=== PATIENT | male | born 1930 | race Caucasian/White ===

== ENCOUNTER → 2016-06-15 13:31 | Outpatient (CLI) | payer MEDICARE, OTHER ==
[2015-08-08 23:35] VITALS: BMI 33.2
[~2016-06-15 13:31] MED LIST: ADVIL PM CAPLET1 TAB PO; ASCORBIC ACID500 MG PO; BAYER CHEWABLE81 MG PO; CALCIUM 600+D T1 TA1 PO; CO Q-10200 MG PO; FISH OIL 1,2001 CA1 PO; FOLIC ACID1 MG PO; IBUPROFEN600 MG PO; NIASPAN1000 MG PO; NORVASC10 MG PO; OSTEO BI-FLEX1 EAC1 PO; PLAVIX75 MG PO; PRAVACHOL40 MG PO; SAW PALMETTO450 MG PO; VITAMIN B COMPL1 TAB PO; VITAMIN E400 UNI2 PO
== END | disposition home or self-care (01) ==
LOC: D.US 06-14 14:30
DX: I65.23 Occlusion and stenosis of bilateral carotid arteries (principal)

== ENCOUNTER 2016-09-29 09:23 | Outpatient (CLI) | payer MEDICARE, OTHER ==
[~2016-09-29] VITALS: Ht 180.3 cm; Wt 100.9 kg
[2016-09-29] MEDS ORDERED: PREDNISONE20 MG PO (09:59)
[2016-09-29 10:03] VITALS: BP 153/78; Ht 180.3 cm; Wt 100.9 kg
[2016-09-29 10:21] LABS: BASOPHILS 0 % (0-2); EOSINOPHILS 0 % (0-7); HEMATOCRIT 47.2 % (42.0-54.0); HEMOGLOBIN 16.1 g/dL (13.5-17.5); IMMATURE GRANULOCYTES 0.1 % (0-5); LYMPHOCYTES 8.2 % (15-50); MCH 31.7 pg (26.0-34.0); MCHC 34.1 g/dL (31.0-37.0); MCV 92.9 fL (80.0-100.0); MEAN PLATELET VOLUME 9.6 fL (7.4-10.4); MONOCYTES 1.5 % (2-11); NEUTROPHILS 90.2 % (40-80); PLATELET COUNT 188 10x3/uL (130-400); RBC 5.08 10x6/uL (4.20-6.10); RDW 13.5 % (11.5-14.5); WBC 8.1 10x3/uL (4.8-10.8)
[2016-09-29 10:37] LABS: CALC OSMOLALITY 277 mosm/kg (275-300); CALCIUM 9.2 mg/dL (8.5-10.1); CHLORIDE - SERUM 104 mmol/L (98-107); CREATININE - SERUM 0.9 mg/dL (0.6-1.3); GLUCOSE 143 mg/dL (74-106); POTASSIUM - SERUM 4.2 mmol/L (3.5-5.1); SODIUM 138 mmol/L (136-145); UREA NITROGEN 13 mg/dL (7-18); eGFR NON AFRICAN AMERICAN 85 mL/min (90-120)
--- NOTE | 2016-09-29 14:29 | NUR ---
1300 PROCEDURE TIME DELAY DUE TO EMERGENT CASES. PT STATES HE WISHES TO CANCEL FOR TODAY AND RESCHEDULE APPOINTMENT FOR ANOTHER DAY. STATES HE WILL CALL DR ROWE'S OFFICE TO RESCHEDULE APPOINTMENT. DC INSTRUCTIONS REVIEWED, PT VERBALIZES UNDERSTANDING. PT ESCORTED TO PRIVATE AUTO VIA WC WITH DRIVING HIM HOME.
== END 2016-09-29 13:00 | disposition home or self-care (01) ==
LOC: D.CATH 09:23
PROVIDERS: Internal Medicine Interventional Cardiology
DX: I25.119 Atherosclerotic heart disease of native coronary artery with unspecified angina pectoris (principal); R06.02 Shortness of breath; Z01.810 Encounter for preprocedural cardiovascular examination; Z01.811 Encounter for preprocedural respiratory examination; Z01.812 Encounter for preprocedural laboratory examination; Z53.9 Procedure and treatment not carried out, unspecified reason

== ENCOUNTER 2016-10-07 11:17 | Inpatient (IN) | payer MEDICARE, OTHER ==
[~2016-10-07] VITALS: Ht 180.3 cm; Wt 98.6 kg
[2016-10-07] VITALS (9 sets, daily range): BP systolic 110–146; BP diastolic 44–71; Ht 180.3 cm; Wt 98.6 kg
--- NOTE | ~2016-10-07 | DS ---
PATIENT:REY MOORE :34 MEDICAL RECORD: [id number] DISCHARGE SUMMARY ADMISSION DATE: 10/07/16 DISCHARGE DATE: 10/08/16 DISCHARGE DIAGNOSES: 1. Acute anterior myocardial infarction. 2. Percutaneous transluminal coronary angioplasty stent of the LAD. 3. Coronary artery disease. 4. Hyperlipidemia. HOSPITAL COURSE: Mr. Moore presents with an acute anterior myocardial infarction and underwent successful PTCA stent of the LAD. He had no concomitant disease of the circumflex or RCA. He had no further chest pain, chest discomfort, no further EKG abnormalities. No dysrhythmia. He was discharged home with the addition of aspirin and Plavix to his medical regimen and continuing the pravastatin he is on. He was not placed on a beta-bouchra due to bradycardia, which is not new for him. He has had a history of bradycardia. He will follow up with [facility] in 1 month. TRANSINT:[id number] Voice Confirmation ID: [id number] DOCUMENT ID: [id number] CHASE ROWE MD CC: [id number] DICTATION DATE: 10/08/16912 MARKETING DEVELOPMENT SPECIALIST: 10/09/16 0328 DIS IN 10/08/16 [facility] [address] [place] [address]
--- NOTE | ~2016-10-07 | HEMODYNAMI ---
PATIENT:REY MOORE MEDICAL RECORD: [id number] : 34 LOCATION:[facility] ADMISSION DATE: 10/07/16 Generatedon:10/07/201612:22 Patient name: REY MOORE Patient #: [id number] SSN: D OB: 1930 Date of study: 10/07/2016 Page: Of Hemodynamic Procedure Report Patient Data Patient Demographics Procedure consent was obtained First Name: REY Gender: Male Last Name: OSCAR : 1930 [facility] Initial: UZMA Age: 86 year(s) Patient #: [id number] Race: Additional ID: [id number] Contact details [address]: [address] [place] [address] State: [place] City: [place] Zip code: [address] Past Medical History Allergies Allergen Reaction Date Comments Reported Other allergy 08/08/2015 crestor, shellfish, alisa inhibitors Other allergy 10/07/2016 Shellfish Admission Admission Data Admission Date: 10/07/2016 Admission Time: 11:17 Height (in.): 71 BSA: 2.2 (m2) Height (cm.): 180.34 BMI: 30.68 (kg/m2) Weight (lbs.): 220 Weight (kg.): 99.79 Lab Results Lab Result Date: 10/07/2016 Lab Result Time: 11:30 Biochemistry Name Units Result Min Max BUN mg/dl 15 --(--*-)-- 7 18 Creatinine mg/dl 0.9 --(-*--)-- 0.6 1.3 CBC Name Units Result Min Max Hematocrit % 43.7 --(*---)-- 42 54 Hemoglobin g/dl 14.8 --(-*--)-- 13.5 17.5 Procedure Procedure Types Cath Procedure Diagnostic Procedure LHC LHC w/Coronaries PCI Procedure Coronary Stent Initial Miscellaneous Procedures Moderate Sedation up to 45 minutes Procedure Description Procedure Date Procedure Date: 10/07/2016 Procedure Start Time: 11:43 Procedure End Time: 12:21 Procedure Staff Name Function Chon Aguilar MD Performing Physician Sha Yusuf RN Nurse Marcin Bass RT Monitor Angeles Moreira RT Scrub Procedure Data Cath Procedure Fluoroscopy Diagnostic fluoroscopy Total fluoroscopy Time: time: 16.6 min 16.6 min Diagnostic fluoroscopy Total fluoroscopy dose: dose: 1698 mGy 1698 mGy Contrast Material Contrast Material Type Amount (ml) Isovue 300 143 Entry Location Entry Primary Successful Side Size Upsize Upsize Entry Closure Succes sful Closure Location (Fr) 1 (Fr) 2 (Fr) Remarks Device Remarks Femoral Right 6 Fr Exoseal artery Short Estimated blood loss: 10 ml Diagnostic catheters Device Type Used For End Catheter Placement Cordis 5Fr JL 4.0 Procedure Catheter (MP) Cordis 5Fr 3DRC Catheter Procedure (MP) Cordis 5Fr Pigtail Procedure Catheter (MP) Procedure Complications No complications Procedure Medications Medication Administration Route Dosage Oxygen NC 2 l/min Solumedrol I.V. 125 mg Plavix P.O. 600 mg Heparin Flush Bag added to field 2 bags (1000units/500ml NS) 0.9% NaCl I.V. 100 ml/hr Pepcid I.V. 20 mg Heparin Bolus I.V. 5000 units Fentanyl I.V. 50 mcg Versed I.V. 1 mg Lidocaine 2% added to field 20 Integrilin (Bolus I.V. 9 ml 2mg/ml) Versed I.V. 1 mg Fentanyl I.V. 50 mcg Integrilin (Bolus I.V. 9 ml 2mg/ml) Hemodynamics Rest BSA: 2.2 (m2) O2 Consumption: Estimated: 239.13 (ml/min) O2 Consumption indexed: Estimated:108.7 (ml/min/m) Heart Rate: 57 (bpm) Snapshots Pre Cath Intra NCS Post Cath Vital Signs Time Heart Resp SPO2 etCO2 [id number] NIBP (mmHg) Rhythm Pain Sedati on Rate (ipm) (%) (mmHg) (mmHg) Status Level (bpm) 11:38:52 57 15 98 0 0 165/76(140) NSR w/ ST 0 (11) 10(A) Elevation , No pain 11:43:14 56 16 100 0 0 151/77(129) NSR w/ ST 0 (11) 10(A) Elevation , No pain 11:47:37 56 20 96 0 0 117/58(93) NSR w/ ST 0 (11) 9(A) Elevation , No pain 11:51:46 54 22 97 0 0 125/66(108) NSR w/ ST 0 (11) 9(A) Elevation , No pain 11:56:02 55 18 100 0 0 131/60(108) NSR w/ ST 0 (11) 9(A) Elevation , No pain 12:00:19 55 17 100 0 0 137/67(109) NSR 0 (11) 9(A) , No pain 12:04:35 60 18 100 0 0 137/70(115) NSR 0 (11) 9(A) , No pain 12:08:51 58 19 100 0 0 144/71(121) NSR 0 (11) 9(A) , No pain 12:13:11 58 16 98 0 0 137/66(111) NSR 0 (11) 9(A) , No pain 12:17:27 57 15 98 0 0 140/69(117) NSR 0 (11) 9(A) , No pain 12:21:45 56 15 98 0 0 144/70(118) NSR 0 (11) 9(A) , No pain Medications Time Medication Route Dose Verified Delivered Reason Notes Effectiveness by by 11:38:30 Oxygen NC 2 Chon Dalton Per physician l/min Lauren Yusuf RN 11:39:55 Solumedrol I.V. 125 Chon Dalton Per physician mg Lauren Yusuf RN 11:40:06 Lidocaine 2% added 20ml Chon Givens used for to vial Lauren Aguilar MD procedure field 11:40:12 Plavix P.O. 600 Chon Dalton for mg Lauren Yusuf RN antiplatelet therapy 11:40:37 Heparin Flush added 2 Sha Dalton used for Bag to bags Paramjit Yusuf RN procedure (1000units/500ml field RN NS) 11:40:47 0.9% NaCl I.V. 100 Chon Dalton Per physician ml/hr Lauren Yusuf RN 11:41:02 Pepcid I.V. 20 mg Chon Dalton Per physician Lauren Yusuf RN 11:42:52 Heparin Bolus I.V. 5000 Chon Dalton for units Lauren Yusuf RN anticoagulation 11:43:49 Fentanyl I.V. 50 Chon Marshally for sedation mcg Lauren Yusuf RN 11:43:55 Versed I.V. 1 mg Chon Dalton for sedation Lauren Yusuf RN 11:44:25 Integrilin I.V. 9 ml Chon Dalton for wasted (Bolus 2mg/ml) Lauren Yusuf RN antiplatelet 1 ml therapy 11:46:37 Versed I.V. 1 mg Chon Dalton for sedation Lauren Yusuf RN 11:46:52 Fentanyl I.V. 50 Chon Marshally for sedation mcg Lauren Yusuf RN 11:54:13 Integrilin I.V. 9 ml Chon Dalton for wasted (Bolus 2mg/ml) Lauren Yusuf RN antiplatelet 1 ml therapy Procedure Log Time Note 11:20:18 Sha Yusuf RN sent for patient. Start room use. 11:29:41 Diagnostic Cath Status : Emergency 11:30:18 Time tracking: Regular hours 11:30:23 Plan of Care:Hemodynamics will remain stable., Cardiac rhythm will remain stable., Comfort level will be maintained., Respiratory function will remain adequate., Patient/ family verbilizes understanding of procedure., Procedure tolerated without complication., Recovers from procedure without complications.. 11:33:58 Patient arrives emergently. 11:34:02 Patient received from ED to CCL 1 Alert and oriented. Tansferred to table in Supine position. 11:34:03 Warm blankets applied, and rayna hugger turned on for patient comfort. 11:34:04 Correct patient and procedure confirmed by team. 11:34:05 Signed procedure consent form obtained from patient. 11:34:06 ECG and BP/O2 sat monitors applied to patient. 11:34:16 H&P Date Dictated: 10/07/2016 Emergent; H&P N/A, Within 30 days and on chart.. 11:34:17 Pre-procedure instructions explained to patient. 11:34:18 Pre-op teaching completed and patient verbalized understanding. 11:34:20 Family in waiting room. 11:34:22 Patient NPO since Breakfast. 11:35:32 Patient allergic to Other allergyShellfish 11:35:35 Is the patient allergic to Iodine/contrast media? Yes. 11:35:37 Was the patient premedicated? Yes 11:35:38 Is patient on blood thinner?No 11:35:40 Patient diabetic? No. 11:35:42 Previous problem with sedation/anesthesia? No ? 11:35:43 Snore? Yes 11:35:44 Sleep apnea? Yes 11:35:45 Deviated septum? No 11:35:46 Opens mouth fully? Yes 11:35:47 Sticks out tongue? Yes 11:35:48 Airway obstruction? No ? 11:35:50 Dentures? No ? 11:35:54 Pre procedure: right dorsailis pedis pulse 1+ Palpable, but thready & weak; easily obliterated 11:36:00 IV patent on arrival in left antecubital with 0.9% NaCl at [facility]. 11:37:44 Vital chart was started 11:38:30 Oxygen 2 l/min NC was administered by Sha Yusuf RN; Per physician; 11:39:42 Lab results completed and on chart. 11:39:50 Right groin area was prepped with chlora-prep and draped in sterile fashion 11:39:50 Alarms reviewed by R. N. 11:39:51 Sharps counted by scrub and verified by R.N. 11:39:55 Solumedrol 125 mg I.V. was administered by Sha Yusuf RN; Per physician; 11:40:06 Lidocaine 2% 20ml vial added to field was administered by Chon Aguilar MD; used for procedure; 11:40:12 Plavix 600 mg P.O. was administered by Sha Yusuf RN; for antiplatelet therapy; 11:40:37 Heparin Flush Bag (1000units/500ml NS) 2 bags added to field was administered by Sha Yusuf RN; used for procedure; 11:40:47 0.9% NaCl 100 ml/hr I.V. was administered by Sha Yusuf RN; Per physician; 11:40:47 Physician arrived 11:40:48 --------ALL STOP TIME OUT------ 11:40:48 Final Timeout: patient, procedure, and site verified with staff and physician. All members of the team are in agreement. 11:40:50 Right groin site verified by team. 11:40:52 Physical assessment completed. ASA score P 2 - A patient with mild systemic disease as per Chon Aguilar MD. 11:40:55 Sedation plan: IV Moderate Sedation Versed, Fentanyl 11:41:02 Pepcid 20 mg I.V. was administered by Sha Yusuf RN; Per physician; 11:41:11 Use device set Femoral Dx 11:41:13 Acist Syringe opened to sterile field. 11:41:13 Bag Decanter opened to sterile field. 11:41:14 Medline Cath Pack opened to sterile field. 11:41:17 St Tashi 260cm J .035 wire opened to sterile field. 11:41:18 Acist Hand Control opened to sterile field. 11:41:19 Acist Manifold opened to sterile field. 11:41:20 Diagnostic Infinity 5Fr Multipack catheter opened to sterile field. 11:41:21 Tegaderm 4 x 4 opened to sterile field. 11:41:32 Terumo 6Fr [place] Sheath opened to sterile field. 11:41:40 Baseline sample Acquired. 11:41:57 Baseline sample Acquired. 11:42:48 Baseline sample Acquired. 11:42:52 Heparin Bolus 5000 units I.V. was administered by Sha Yusuf RN; for anticoagulation; 11:43:45 Procedure started. 11:43:45 Full Disclosure recording started 11:43:47 Local anesthetic to right femoral artery with Lidocaine 2% by Chon Aguilar MD.INITIAL ACCESS ONLY 11:43:49 Fentanyl 50 mcg I.V. was administered by Sha Yusuf RN; for sedation; 11:43:55 Versed 1 mg I.V. was administered by Sha Yusuf RN; for sedation; 11:44:07 A 6 Fr Short sheath was inserted into the Right Femoral artery 11:44:20 Arteaga burrp!isper J 300cm 0.014 guide wire opened to sterile field. 11:44:20 Zero performed for pressure channel P1 11:44:24 Zero performed for pressure channel P1 11:44:25 Integrilin (Bolus 2mg/ml) 9 ml I.V. was administered by Sha Yusuf RN; for antiplatelet therapy; wasted 1 ml 11:44:39 Merit BasixCompak Inflation Kit opened to sterile field. 11:45:39 A Cordis 5Fr JL 4.0 Catheter () was advanced over the wire and used for Procedure. 11:46:21 LCA angiography performed. 11:46:37 Versed 1 mg I.V. was administered by Sha Yusuf RN; for sedation; 11:46:38 Cordis 6FR XBLAD 4.0 guide catheter opened to sterile field. 11:46:52 Fentanyl 50 mcg I.V. was administered by Sha Yusuf RN; for sedation; 11:47:45 Catheter exchanged over wire. 11:47:48 A Cordis 5Fr 3DRC Catheter (MP) was advanced over the wire and used for Procedure. 11:47:55 RCA angiography performed. 11:48:11 Catheter removed. 11:48:19 6 Fr xblad 4 guide catheter was inserted over the wire 11:49:01 whisper wire advanced. 11:52:34 Arteaga Fielder XT J 300cm 0.014 guide wire opened to sterile field. 11:54:13 Integrilin (Bolus 2mg/ml) 9 ml I.V. was administered by Sha Yusuf RN; for antiplatelet therapy; wasted 1 ml 11:56:49 Wire removed. unable to cross lesion. 11:56:58 [place] Sci Choice PT Extra Support J 300cm .014 gu opened to sterile field. 11:57:06 choice pt wire advanced. 11:57:42 Wire advanced across lesion. 11:58:08 Inflation number: 1 A [place] Sci Union 2.5 X 20 balloon was prepped and advanced across the Prox LAD, then inflated to 17 EMIL for 0:10 (min:sec). 11:58:24 Inflation number: 2 The [place] Sci Union 2.5 X 20 balloon was reinflated across the Prox LAD, to 17 EMIL for 0:10 (min:sec). 11:58:49 Inflation number: 3 The [place] Sci Union 2.5 X 20 balloon was reinflated across the Prox LAD, to 21 EMIL for 0:10 (min:sec). 11:59:01 Inflation number: 4 The [place] Sci Union 2.5 X 20 balloon was reinflated across the Prox LAD, to 21 EMIL for 0:10 (min:sec). 11:59:23 Balloon removed over the wire. 12:01:08 Inflation number: 5 A [place] Sci Union 3.0 X 15 balloon was prepped and advanced across the Prox LAD, then inflated to 17 EMIL for 0:10 (min:sec). 12:01:19 Inflation number: 6 The [place] Sci Union 3.0 X 15 balloon was reinflated across the Prox LAD, to 7 EMIL for 0:10 (min:sec). 12:01:45 Inflation number: 7 The [place] Sci Union 3.0 X 15 balloon was reinflated across the Prox LAD, to 19 EMIL for 0:10 (min:sec). 12:02:03 Inflation number: 8 The [place] Sci Union 3.0 X 15 balloon was reinflated across the Prox LAD, to 15 EMIL for 0:10 (min:sec). 12:02:23 Inflation number: 9 The [place] Sci Union 3.0 X 15 balloon was reinflated across the Prox LAD, to 11 EMIL for 0:10 (min:sec). 12:02:49 Inflation number: 10 The [place] Sci Union 3.0 X 15 balloon was reinflated across the Prox LAD, to 19 EMIL for 0:10 (min:sec). 12:04:58 Balloon removed over the wire. 12:05:02 Inflation Number: 11 A Biofreedom 3.0 x 18 stent was prepped and advanced across the Prox LAD. The stent was deployed at 17 EMIL for 0:10 (min:sec). 12:05:45 Stent catheter was removed intact over wire. 12:05:46 Wire removed. 12:05:48 Guide catheter removed. 12:05:55 Cordis 6Fr Exoseal opened to sterile field. 12:06:43 A Cordis 5Fr Pigtail Catheter (MP) was advanced over the wire and used for Procedure. 12:10:56 Catheter removed. 12:11:15 Sheath removed intact; hemostasis achieved with Exoseal to the Right Femoral artery. 12:11:16 Procedure ended.(Physican Out) 12:13:20 Fluoroscopy time 16.60 minutes. 12:13:24 Flurop Dose total: 1698 12:13:24 Fluoroscopy dose: 1698 mGy 12:13:40 Contrast amount:Isovue 300 143ml. 12:13:42 Sharps counted by scrub and verified by R.N. 12:13:43 Insertion/operative site no bleeding no hematoma. 12:13:46 Post-op/insertion site Right Femoral artery dressed using a 4 x 4 and Tegaderm. 12:13:51 Post right femoral artery:stable, soft, clean and dry 12:15:22 Post Procedure Pulses reassessed and unchanged 12:15:24 Post-procedure physical assessment completed. ASA score P 2 - A patient with mild systemic disease as per Chon Aguilar MD. 12:15:26 Post procedure rhythm: unchanged. 12:15:33 Estimated blood loss: 10 ml 12:15:35 Post procedure instruction explained to patient.Patient verbalizes understanding. 12:15:36 Patient needs reinforcement of post procedure teaching. 12:15:47 Procedure type changed to Cath procedure, Diagnostic procedure, LHC, LHC w/Coronaries, PCI procedure, Coronary Stent Initial, Miscellaneous Procedures, Moderate Sedation up to 45 minutes 12:20:54 Procedure and supply charges have been captured, reviewed, submitted and are correct. 12:20:56 Procedure Complication : No complications 12:20:58 Vital chart was stopped 12:20:59 See physician's report for complete and final results. 12:21:01 Report given to CVICU. 12:21:04 Patient transfered to CVICU with Stretcher. 12:21:06 Procedure ended. 12:21:06 Full Disclosure recording stopped 12:21:32 End room use (Document Last) 12:21:50 Patient Weight : 220 kg 12:21:55 Patient Height : 71 cm 12:22:35 Lab Result : BUN 15 mg/dl 12:22:35 Lab Result : Hematocrit 43.7 % 12:22:35 Lab Result : Hemoglobin 14.8 g/dl 12:22:35 Lab Result : Creatinine 0.9 mg/dl Intervention Summary Intervention Notes Time ActionType Lesion and Equipment Action# Pressure Duration Attributes Used 11:58:08 Inflate Prox LAD [place] Sci 1 17 00:10 balloon Union 2.5 X 20 balloon 11:58:24 Reinflate Prox LAD [place] Sci 2 17 00:10 balloon Union 2.5 X 20 balloon 11:58:49 Reinflate Prox LAD [place] Sci 3 21 00:10 balloon Union 2.5 X 20 balloon 11:59:01 Reinflate Prox LAD [place] Sci 4 21 00:10 balloon Union 2.5 X 20 balloon 12:01:08 Inflate Prox LAD [place] Sci 5 17 00:10 balloon Union 3.0 X 15 balloon 12:01:19 Reinflate Prox LAD [place] Sci 6 7 00:10 balloon Union 3.0 X 15 balloon 12:01:45 Reinflate Prox LAD [place] Sci 7 19 00:10 balloon Union 3.0 X 15 balloon 12:02:03 Reinflate Prox LAD [place] Sci 8 15 00:10 balloon Union 3.0 X 15 balloon 12:02:23 Reinflate Prox LAD [place] Sci 9 11 00:10 balloon Union 3.0 X 15 balloon 12:02:49 Reinflate Prox LAD [place] Sci 10 19 00:10 balloon Union 3.0 X 15 balloon 12:05:[address] stent Prox LAD Biofreedom 11 17 00:10 3.0 x 18 stent Device Usage Item Name Manufacture Quantity Catalog Number Hospital Part Current Mini mal Lot# / Charge Number Stock Stock Serial# Code Acist Acist 1 26014 484563 979786 942653 20 Syringe Medical Systems Stemedica Cell Technologies Bag Microtek 1 2002S 353708 94017 464577 5 Securant Inc. Medline Cardinal 1 [id number] 604849 64167 366[address] Tashi St Tashi 1 701907 198662 292500 852411 30 260cm J .035 wire Acist Hand Acist 1 26350 683552 690627 527718 5 Spiracur Medical Systems Inc Acist Acist 1 76986 939500 814209 037763 5 23press Medical Systems Inc Diagnostic Cardinal 1 [id number] 954430 46771 975895 30 Dine Market 5Fr Multipack catheter Tegaderm 4 3M 1 1626W 185745 027883 749754 5 x 4 Terumo 6Fr Terumo 1 [id number] 242473 554497 896559 40 [place] Sheath Cordis 5Fr Cardinal 1 324108 5 JL 4.0 Health Catheter (MP) Cordis 6FR Cardinal 1 [id number] 175678 055948 141157 3 XBLAD 4.0 Health guide catheter Cordis 5Fr Cardinal 1 034720 5 3DRC Health Catheter (MP) Arteaga Arteaga 1 [id number] 842751 988285 359217 5 Fielder XT Vascular J 300cm 0.014 guide wire Pon[place] Sci [place] 1 [id number] 516152 5 Choice PT Scientific Extra Support J 300cm .014 gu [place] Sci [place] 1 [id number] 220528 384436 815716 1 [id number] Union Scientific 2.5 X 20 balloon [place] Sci [place] 1 [id number] 385999 648794 375787 1 [id number] Omnilink Systems 3.0 X 15 balloon Biofreedom Biosensors 1 [id number] 364747 707458 5 [id number] 3.0 x 18 Europe SA stent Cordis 6Fr Cardinal 1 EX600 545523 931117 418817 10 Exoseal Health Cordis 5Fr Cardinal 1 073121 5 Pigtail Health Catheter (MP) Arteaga Arteaga 1 [id number] 280955 632110 623834 5 isper J Vascular 300cm 0.014 guide wire Merit Merit 1 [id number] 940253 301909 532052 15 [facility] Medical Inflation Kit Signature Audit [place] Stage Time Signature Unsigned Intra-Procedure 10/07/2016 Marcin Bass 12:22:49 PM RT(R) Signatures Monitor : Marcin Bass RT Signature : Date : Time : [place] [id number] [place] [address]
[~2016-10-07 11:17] MED LIST changes: +PREDNISONE20 MG PO
[2016-10-07 11:32] LABS: BASOPHILS 0.3 % (0-2); EOSINOPHILS 3.3 % (0-7); HEMATOCRIT 43.7 % (42.0-54.0); HEMOGLOBIN 14.8 g/dL (13.5-17.5); IMMATURE GRANULOCYTES 0.3 % (0-5); LYMPHOCYTES 21.8 % (15-50); MCH 31.6 pg (26.0-34.0); MCHC 33.9 g/dL (31.0-37.0); MCV 93.4 fL (80.0-100.0); NEUTROPHILS 61.3 % (40-80); PLATELET COUNT 192 10x3/uL (130-400); RBC 4.68 10x6/uL (4.20-6.10); RDW 13.5 % (11.5-14.5); WBC 7.2 10x3/uL (4.8-10.8)
[2016-10-07 11:49] LABS: ALBUMIN 3.7 g/dL (3.4-5.0); ALKALINE PHOSPHATASE 64 U/L (46-116); ALT (SGPT) 26 U/L (10-68); CALC OSMOLALITY 280 mosm/kg (275-300); CALCIUM 8.8 mg/dL (8.5-10.1); CARBON DIOXIDE 26.4 mmol/L (21.0-32.0); CHLORIDE - SERUM 104 mmol/L (98-107); CREATININE - SERUM 0.9 mg/dL (0.6-1.3); GLUCOSE 142 mg/dL (74-106); PROTEIN - SERUM 6.6 g/dL (6.4-8.2); SODIUM 139 mmol/L (136-145); UREA NITROGEN 15 mg/dL (7-18); eGFR NON AFRICAN AMERICAN 85 mL/min (90-120)
[2016-10-07 12:01] LABS: CHOL - HDL RATIO 2.7 ratio (2.3-4.9); CHOLESTEROL, TOTAL 176 mg/dL (0-200); CKMB 1.9 U/L (0.0-3.6); CREATINE KINASE 96 UL (21-232); HDL CHOLESTEROL 65 mg/dL (32-96); LDL CHOLESTEROL 92 mg/dL (0-100); LDL-HDL RATIO 1.4 ratio (1.5-3.5); TRIGLYCERIDE 97 mg/dL (30-200); TROPONIN-I 0.048 ng/mL (0.000-0.060)
--- NOTE | 2016-10-07 12:46 | NUR ---
Pt received to room via bed from dental laboratory assistant accompanied by dental laboratory assistant staff. Pt awake and conversant. Dressing to right groin intact. No bleeding noted. No bruising noted, site is soft to palpation. Is on 2L NC. Pedal pulses palpable bilateral.
--- NOTE | 2016-10-07 15:00 | NUR ---
Called and had staff from [employer] to come over and look at patient groin site, has had some additional bleeding noted on dressing. Dressing removed and incision inspected by [employer] staff. Pt had a "small skin tear" at incision site. Does not appear to be bleeding any longer. New dressing applied.
--- NOTE | 2016-10-07 15:20 | NUR ---
and son at bedside. Home medications being reviewed with . Have noted some light bleeding at right groin site. Dressing marked to watch for additional bleeding. No hematoma noted, site is soft.
[2016-10-07] MEDS ORDERED: NITROSTAT0.4 MG SL (15:24)
[2016-10-07] MEDS ORDERED: VITAMIN B-12100 MCG PO (15:29)
[2016-10-07] MEDS ORDERED: VITAMIN D31000 UNI2 PO (15:32)
[2016-10-07] MEDS ORDERED: PYRIDOXINE HCL100 MG PO (15:34)
[2016-10-07] MEDS ORDERED: BIOTIN5 MG PO (15:35)
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
--- NOTE | 2016-10-07 17:00 | NUR ---
Dr Aguilar has been in to see patient. Has order for EKG in AM. Plan is to D/C home tomorrow. Dressing at right groin no evidence of bleeding. Pt is sitting up in bed, dinner tray has been provided.
--- NOTE | 2016-10-07 18:31 | NUR ---
Pt assisted up to toilet. No slip socks provided. Gait steady. Dressing intact, no bleeding.
--- NOTE | 2016-10-07 20:00 | NUR ---
2000: Pt right groin site CDI no s/s of bleeding, oozing, or swelling noted. Pt remains SR on CM. Left PIV SL'D. Pt resting on RA with SPO2 96%.
--- NOTE | 2016-10-07 21:00 | NUR ---
2100: Pt brushed own teeth (Oral care) with no assitance. Pt w/o c/o at this time. No change in RESP/CV/NV status.
--- NOTE | 2016-10-07 22:00 | NUR ---
2200: Pt states he wears Bipap at home each HS. Pt states he has not been without in some time and has hx of sleep apnea. Placed 022LNC at this time. Contin. SPO2 monitor in place with proper wf and tracking.
[2016-10-08] VITALS: BP 110/54
--- NOTE | 2016-10-08 01:00 | NUR ---
0100: No change in RESP/CV/NV status. No change in IVF/UOP. Pt resting with eyes closed at this time.
[2016-10-08 04:00] VITALS: BP 111/56
--- NOTE | 2016-10-08 05:00 | NUR ---
0500: Pt up to bathroom with minimal assitance. Pt urinated in toilet. Pt urine with pink tinge to color. Pt back to bed and monitors resumed. No change in RESP/CV/NV status. Right groin unchanged. No s/s of hematoma noted.
[2016-10-08 07:00] VITALS: BP 125/57
--- NOTE | 2016-10-08 09:26 | NUR ---
Dr Aguilar has been by to see patient, is going to discharge today. Follow up appointment made for November 08 at 2:40pm.
[2016-10-08] MEDS ORDERED: PLAVIX75 MG PO (09:44)
--- NOTE | 2016-10-08 10:20 | NUR ---
IV removed, tip intact. has been called for transport. Awaiting arrival for discharge teaching.
--- NOTE | 2016-10-08 11:02 | NUR ---
Discharge instructions provided to patient and .
--- NOTE | 2016-10-08 16:36 | HP ---
PATIENT: REY MOORE MEDICAL RECORD: [id number] ACCOUNT: [id number] LOCATION:[facility] MayelaCV05 : 32 ADMISSION DATE: 10/07/16 HISTORY AND PHYSICAL EXAMINATION DIAGNOSES: 1. Acute anterior myocardial infarction. 2. Coronary artery disease. 3. Previous multivessel percutaneous transluminal coronary angioplasty stent. 4. Hyperlipidemia. HISTORY OF PRESENT ILLNESS: Mr. Moore presents with chest pain started approximately 1 hour ago. He has been having anginal symptomatology. He was set for cardiac catheterization next week; however, he started having chest pain, called EMS. His EKG is compatible with an acute anterior myocardial infarction. Cardiac review of systems, a non-diabetic, nonsmoker, no hypertension, no previous stroke, no previous malignancy, no previous congestive heart failure, no previous myocardial infarction, no previous coronary bypass graft surgery, previous PCI, last being 08/08/2015 of the left circumflex, no peripheral vascular disease. No atrial fibrillation, no COPD. PHYSICAL EXAMINATION: GENERAL APPEARANCE: Well-nourished, well-developed, appears stated age. Level of distress, comfortable. PSYCHIATRIC: Mental status, alert, normal affect. Orientation, oriented to time, place and person. EYES: Lids and conjunctiva, noninjected. No discharge, no pallor. ENT: Lips, teeth, gums, normal dentition. Oropharynx, no cyanosis, no pallor. NECK: Carotid arteries, bilateral normal upstroke, no bruits, no thrills. JUGULAR VEINS: No jugular venous pressure or distention. CERVICAL LYMPH NODES: Nontender, nonenlarged. THYROID: Not enlarged. Nontender. No nodules. LUNGS: Respiratory effort, unlabored. CHEST: Normal curvature. No thoracic deformity. No chest wall tenderness. Percussion, resonant. Auscultation, clear. No wheezes, no rales, no rhonchi. CARDIOVASCULAR: Precordial exam, nondisplaced. No heaves or pericardial thrills. Rate and rhythm, regular. Heart sounds, normal S1, normal S2. No S3, no gallop, no rub. Systolic murmur, not heard. Diastolic murmur, not heard. EXTREMITIES: No cyanosis, no edema. Peripheral pulses, full and equal in all extremities, except as noted. No bruits appreciated. ABDOMEN: Soft, nondistended. Normal aorta. No bruit. Nontender. No masses. Liver, nontender, no hepatomegaly. Spleen, nontender, no splenomegaly. MUSCULOSKELETAL: No joint tenderness. No joint swelling. No erythema. NEUROLOGICAL: Normal gait, normal strength, normal tone. SKIN: Warm and dry. OVERALL IMPRESSION: Acute anterior myocardial infarction. We will proceed with emergent coronary angiography and transcatheter revascularization. TRANSINT:[id number] Voice Confirmation ID: [id number] DOCUMENT ID: [id number] HISTORY AND PHYSICAL [id number] REY MOORE JEFFREY MD at 1636 CC: [id number] DICTATION DATE: 10/07/16 1218 POSTAL SUPPORT EMPLOYEE: 10/07/16 1515 DIS IN 10/08/16 [id number] [place] [address]
--- NOTE | 2016-10-08 16:36 | OP ---
PATIENT NAME: REY MOORE MEDICAL RECORD: [id number] :34 LOCATION:[facility] ADMISSION DATE:10/07/16 SURGEON: CHASE ROWE MD DATE OF OPERATION: 10/07/2016 PROCEDURES: 1. PTCA stent LAD. 2. Left heart catheterization. 3. Selective coronary angiography. INDICATION: Acute myocardial infarction. PROCEDURE IN DETAIL: After informed consent was obtained and after detailed explanation of risks, benefits as well as alternative therapies, the patient elected to proceed with angiogram and angioplasty. The right femoral area was prepped and draped in normal sterile fashion. Right femoral artery was cannulated via modified Seldinger technique with placement of 6-Persian sheath. All catheters exchanged through this sheath. FINDINGS: The left ventriculogram was not performed secondary to inability to cross the valve. SELECTIVE CORONARY ANGIOGRAPHY: 1. Left main showed no significant angiographic disease. 2. Left anterior descending has a previously placed stent in the mid vessel with 99% in-stent restenosis and WILIAM 1 flow. 3. Left circumflex has mild irregularities, but no flow-limiting stenosis. No significant restenosis of the previously placed stent in the circumflex. 4. Right coronary is small, nondominant with no significant disease. PTCA STENT OF THE LAD: The lesion was approximately 15 mm in length. There was WILIAM 1 flow to begin with. This was addressed with a 2.0 and 3.0 balloon. Stenting was undertaken with a 3.0 x 18 BioFreedom stent. Result was 0% residual stenosis. OVERALL IMPRESSION: Successful percutaneous transluminal coronary angioplasty stent of the left anterior descending going from 99% initial stenosis to 0% residual with taoism of WILIAM-3 flow. TRANSINT:[id number] Voice Confirmation ID: [id number] DOCUMENT ID: [id number] CHASE ROWE MD at 1636 CC: [id number] DICTATION DATE: 10/07/16 1220 ELECTRIC SIGN WIRER: 10/07/16 2130 DIS IN 10/08/16 [facility] [address] [id number]
== END 2016-10-08 11:09 | disposition home or self-care (01) | DRG 247 ==
LOC: D.CVICU 11:17 → D.ER 11:17 → D.CVICU 12:37 → D.ER 12:38 → D.CVICU 12:45
PROVIDERS: Emergency Medicine; ADMIT Internal Medicine Interventional Cardiology
PROC: B2111ZZ Fluoroscopy of Multiple Coronary Arteries using Low Osmolar Contrast (ICD-10-PCS; 2016-10-07)
PROC: B2151ZZ Fluoroscopy of Left Heart using Low Osmolar Contrast (ICD-10-PCS; 2016-10-07)
PROC: 027034Z Dilation of Coronary Artery, One Artery with Drug-eluting Intraluminal Device, Percutaneous Approach (ICD-10-PCS; principal; 2016-10-07 11:30)
PROC: 4A023N7 Measurement of Cardiac Sampling and Pressure, Left Heart, Percutaneous Approach (ICD-10-PCS; 2016-10-07 11:30)
DX: I21.09 ST elevation (STEMI) myocardial infarction involving other coronary artery of anterior wall (principal); I25.10 Atherosclerotic heart disease of native coronary artery without angina pectoris; Z95.5 Presence of coronary angioplasty implant and graft; E78.5 Hyperlipidemia, unspecified; Z00.6 Encounter for examination for normal comparison and control in clinical research program

== ENCOUNTER → 2017-01-04 10:12 | Outpatient (CLI) | payer MEDICARE, OTHER ==
[2016-10-07 14:00] VITALS: BMI 30.3
[~2017-01-04 10:12] MED LIST changes: +BIOTIN5 MG PO; +NITROSTAT0.4 MG SL; +PYRIDOXINE HCL100 MG PO; +VITAMIN B-12100 MCG PO; +VITAMIN D31000 UNI2 PO
== END | disposition home or self-care (01) ==
LOC: D.CT 10:12
DX: R10.9 Unspecified abdominal pain (principal); R10.2 Pelvic and perineal pain; R63.4 Abnormal weight loss

== ENCOUNTER → 2017-08-19 12:08 | Outpatient (CLI) | payer MEDICARE, OTHER ==
[2016-10-07 14:00] VITALS: BMI 30.3
[~2017-08-19 12:08] MED LIST changes: +ZOLOFT25 MG PO
== END | disposition home or self-care (01) ==
LOC: D.US 12:08
DX: I65.23 Occlusion and stenosis of bilateral carotid arteries (principal)

== ENCOUNTER 2017-09-28 08:03 | Outpatient (CLI) | payer MEDICARE, OTHER ==
[~2017-09-28] VITALS: Ht 180.3 cm; Wt 94.1 kg
--- NOTE | ~2017-09-28 | HEMODYNAMI ---
PATIENT:REY MOORE MEDICAL RECORD: [id number] : 34 LOCATION:[facility] ADMISSION DATE: 09/28/17 Generatedon:09/28/201711:07 Patient name: REY MOORE Patient #: [id number] SSN: D OB: 1930 Date of study: 09/28/2017 Page: Of Hemodynamic Procedure Report Patient Data Patient Demographics Procedure consent was obtained First Name: REY Gender: Male Last Name: OSCAR : 1930 Middle Initial: UZMA Age: 87 year(s) Patient #: [id number] Race: Additional ID: [id number] Contact details Address: [address] [place] [address] State: [place] City: [place] Zip code: [address] Past Medical History Allergies Allergen Reaction Date Comments Reported Other allergy 08/08/2015 crestor, shellfish, alisa inhibitors Other allergy 10/07/2016 Shellfish Other allergy 09/28/2017 CRESTOR, LIPITOR, SHELLFISH Admission Admission Data Admission Date: 09/28/2017 Admission Time: 8:03 Lab Results Lab Result Date: 09/28/2017 Lab Result Time: 0:00 Biochemistry Name Units Result Min Max BUN mg/dl 15 --(--*-)-- 7 18 Creatinine mg/dl 0.9 --(-*--)-- 0.6 1.3 CBC Name Units Result Min Max Hemoglobin g/dl 15.6 --(--*-)-- 13.5 17.5 Procedure Procedure Types Cath Procedure Diagnostic Procedure [facility] w/Coronaries PCI Procedure Coronary Stent Coronary Stent Initial Procedure Description Procedure Date Procedure Date: 09/28/2017 Procedure Start Time: 10:50 Procedure End Time: 11:05 Procedure Staff Name Function Chon Aguilar MD Performing Physician Deepak Lara RT Monitor Charley Dodson RT Scrub Scott Myrick RN Nurse Procedure Data Cath Procedure Fluoroscopy Diagnostic fluoroscopy Total fluoroscopy Time: 2.8 time: 2.8 min min Diagnostic fluoroscopy Total fluoroscopy dose: 535 dose: 535 mGy mGy Contrast Material Contrast Material Type Amount (ml) Isovue 300 76 Entry Location Entry Primary Successful Side Size Upsize Upsize Entry Closure Patrick ccessful Closure Location (Fr) 1 (Fr) 2 (Fr) Remarks Device Remarks Radial Right 6 Fr Mechanical artery Short Compression Estimated blood loss: 10 ml Diagnostic catheters Device Type Used For End Catheter Placement DIAGNOSTIC Leckrone 110cm 5 Procedure Fr catheter ([id number]) Procedure Complications No complications Procedure Medications Medication Administration Route Dosage Oxygen NC 2 l/min Lidocaine 2% added to field 20 Heparin Flush Bag added to field 2 bags (1000units/500ml NS) 0.9% NaCl I.V. 100 ml/hr Versed I.V. 1 mg Fentanyl I.V. 50 mcg Radial Cocktail I.A. 1 syringe (Verapomil 2mg/Nitro 400mcg/Heparin 1500units) Heparin Bolus I.V. 4000 units Integrilin (Bolus I.V. 8.5 ml 2mg/ml) Versed I.V. 1 mg Fentanyl I.V. 50 mcg Plavix P.O. 600 mg Hemodynamics Rest HGB: 15.6 (g/dl) Heart Rate: 62 (bpm) Snapshots Pre Cath Intra NCS Post Cath Vital Signs Time Heart Resp SPO2 etCO2 NIBP (mmHg) Rhythm Pain Sedation Rate (ipm) (%) (mmHg) Status Level (bpm) 10:27:25 74 15 93 0 134/64(108) NSR 0 (11) 10(A) , No pain 10:31:41 58 17 97 29.3 131/63(109) NSR 0 (11) 10(A) , No pain 10:35:57 60 20 95 22.5 125/62(102) NSR 0 (11) 10(A) , No pain 10:40:09 57 12 95 30.8 126/62(98) NSR 0 (11) 10(A) , No pain 10:44:21 63 18 96 27 133/65(105) NSR 0 (11) 10(A) , No pain 10:48:37 59 16 93 22.5 118/60(96) NSR 0 (11) 9(A) , No pain 10:52:51 60 14 93 0 83/41(64) NSR 0 (11) 9(A) , No pain 10:56:53 61 13 95 0 98/46(80) NSR 0 (11) 10(A) , No pain 11:01:01 58 14 94 19.5 104/47(78) NSR 0 (11) 10(A) , No pain 11:05:00 26.3 No Cuff NSR 0 (11) 10(A) , No pain Medications Time Medication Route Dose Verified Delivered Reason Note s Effectiveness by by 10:40:26 Oxygen NC 2 l/min Chon Buffie used for Lauren Myrick RN procedure 10:40:33 Lidocaine 2% added 20ml Chonkomal Givens used for to vial Lauren Aguilar MD procedure field 10:40:39 Heparin Flush added 2 bags Chonkomal Givens used for Bag to Lauren Aguilar MD procedure (1000units/500ml field NS) 10:40:47 0.9% NaCl I.V. 100 Chon Buffie Per physician ml/hr Lauren Myrick RN 10:44:04 Fentanyl I.V. 50 mcg Chon Chavez for sedation Lauren Myrick RN 10:44:49 Versed I.V. 1 mg Chon Chavez for sedation Lauren Myrick RN 10:49:00 Versed I.V. 1 mg Chon Osegueraie for sedation Lauren Myrick RN 10:49:05 Fentanyl I.V. 50 mcg Chon Chavez for sedation Lauren Myrick RN 10:50:17 Radial Cocktail I.A. 1 Chon Givens for (Verapomil syringe Lauren Aguilar MD vasodilation 2mg/Nitro 400mcg/Heparin 1500units) 10:53:42 Heparin Bolus I.V. 4000 Chon Chavez for veri fied units Lauren Myrick RN anticoagulation with dr aguilar 10:55:26 Integrilin I.V. 8.5 ml Chon Chavez for Wast ed (Bolus 2mg/ml) Lauren Myrick RN antiplatelet 1.5 ml therapy of vial 11:00:02 Plavix P.O. 600 mg Chon Chavez for Lauren Myrick RN antiplatelet therapy Procedure Log Time Note 10:00:31 Deepak ALAMO(R) sent for patient. Start room use. 10:12:31 Time tracking: Regular hours (M-F 7:00 - 5:00) 10:12:35 Plan of Care:Hemodynamics will remain stable., Cardiac rhythm will remain stable., Comfort level will be maintained., Respiratory function will remain adequate., Patient/ family verbilizes understanding of procedure., Procedure tolerated without complication., Recovers from procedure without complications.. 10:12:37 Signed procedure consent form obtained from patient. 10:12:43 H&P Date Dictated: 08/30/2017 Within 30 days and on chart., H&P Addendum completed by physician on day of procedure. (MUST COMPLETE FOR ALL OUTPATIENTS). 10:13:16 Lab Result : BUN 15 mg/dl 10:13:16 Lab Result : Creatinine 0.9 mg/dl 10:13:16 Lab Result : Hemoglobin 15.6 g/dl 10:13:44 Patient allergic to Other allergyCRESTOR, LIPITOR, SHELLFISH 10:15:43 Patient received from Pre/Post Procedure Room to CCL 2 Alert and oriented. Tansferred to table in Supine position. 10:15:44 Warm blankets applied, and rayna hugger turned on for patient comfort. 10:15:44 Correct patient and procedure confirmed by team. 10:15:46 ECG and BP/O2 sat monitors applied to patient. 10:26:12 Vital chart was started 10:26:14 Baseline sample Acquired. 10:34:22 Rhythm: sinus rhythm 10:34:32 Full Disclosure recording started 10:34:34 Pre-procedure instructions explained to patient. 10:34:35 Pre-op teaching completed and patient verbalized understanding. 10:34:39 Family in patients room. 10:34:41 Patient NPO since Midnight. 10:34:43 Is the patient allergic to Iodine/contrast media? Yes. 10:34:45 Was the patient premedicated? Yes 10:34:52 Is patient on blood thinner?No 10:34:58 Patient diabetic? No. 10:35:01 Previous problem with sedation/anesthesia? No ? 10:35:04 Snore? Yes 10:35:05 Sleep apnea? Yes 10:35:06 Deviated septum? No 10:35:06 Opens mouth fully? Yes 10:35:07 Sticks out tongue? Yes 10:35:09 Airway obstruction? No ? 10:38:17 Dentures? No ? 10:38:59 Pre procedure: right dorsailis pedis pulse 1+ Palpable, but thready & weak; easily obliterated 10:39:01 Modified Delbert's test Ulnar < 7 seconds 10:39:05 Patient pain scale 0/10 ?. 10:39:12 IV patent on arrival in left forearm with 0.9% NaCl at [facility]. 10:39:16 Lab results completed and on chart. 10:39:44 Right Radial & Right Groin area was prepped with chlora-prep and draped in sterile fashion 10:39:49 Sharps counted by scrub and verified by R.N. 10:40:26 Oxygen 2 l/min NC was administered by Scott Myrick RN; used for procedure; 10:40:33 Lidocaine 2% 20ml vial added to field was administered by Chon Aguilar MD; used for procedure; 10:40:39 Heparin Flush Bag (1000units/500ml NS) 2 bags added to field was administered by Chon Aguilar MD; used for procedure; 10:40:47 0.9% NaCl 100 ml/hr I.V. was administered by Scott Myrick RN; Per physician; 10:43:26 --------ALL STOP TIME OUT------ 10:43:26 Final Timeout: patient, procedure, and site verified with staff and physician. All members of the team are in agreement. 10:43:28 Right Radial & Right Groin site verified by team. 10:43:30 Physical assessment completed. ASA score P 2 - A patient with mild systemic disease as per Chon Aguilar MD. 10:43:34 Sedation plan: IV Moderate Sedation Medication:Versed, Fentanyl 10:44:04 Fentanyl 50 mcg I.V. was administered by Scott Myrick RN; for sedation; 10:44:42 Use device set Radial Dx or PCI 10:44:45 Tegaderm 4 x 4 (1626W) opened to sterile field. 10:44:46 ACIST Manifold (27665) opened to sterile field. 10:44:46 ACIST Hand Control (95168) opened to sterile field. 10:44:47 ACIST Syringe (83480) opened to sterile field. 10:44:48 Medline Cath Pack ([id number]) opened to sterile field. 10:44:48 Bag Decanter () opened to sterile field. 10:44:49 Versed 1 mg I.V. was administered by Buffie Myrick RN; for sedation; 10:44:49 DIAGNOSTIC WIRE .035 260cm J wire (074698) opened to sterile field. 10:44:49 MBrace Wrist Support ([id number]) opened to sterile field. 10:44:52 SHEATH 6Fr Prelude Radial ([id number]) opened to sterile field. 10:49:00 Versed 1 mg I.V. was administered by Scott Myrick RN; for sedation; 10:49:05 Fentanyl 50 mcg I.V. was administered by Scott Myrick RN; for sedation; 10:49:37 Procedure started. 10:50:15 Local anesthetic to right radial artery with Lidocaine 2% by Chon Aguilar MD.INITIAL ACCESS ONLY 10:50:16 A 6 Fr Short sheath was inserted into the Right Radial artery 10:50:17 Radial Cocktail (Verapomil 2mg/Nitro 400mcg/Heparin 1500units) 1 syringe I.A. was administered by Chon Aguilar MD; for vasodilation; 10:50:45 A DIAGNOSTIC Leckrone 110cm 5 Fr catheter (557854) was advanced over the wire and used for Procedure. 10:51:15 LV angiography performed. 10:51:16 LV gram done using GREEN 10:51:22 EF : 60 % 10:51:40 Injector settings: Ml/sec: 7, Volume: 15, 10:51:50 LCA angiography performed. 10:52:33 RCA angiography performed. 10:52:34 Catheter removed. 10:52:38 Use device set YARIEL PCI 10:52:53 GUIDE 6FR XBLAD 3.5 catheter ([id number]) opened to sterile field. 10:52:56 INFLATOR Merit BasixCompak (UL2695) opened to sterile field. 10:53:23 6 Fr XBLAD 3.5 guide catheter was inserted over the wire 10:53:38 CHOICE PT Extra Support 182cm wire ([id number]) opened to sterile field. 10:53:42 Heparin Bolus 4000 units I.V. was administered by Scott Myrick RN; for anticoagulation; verified with dr aguilar 10:54:38 Choice PT XS wire advanced. 10:54:49 Wire advanced across lesion. 10:55:26 Integrilin (Bolus 2mg/ml) 8.5 ml I.V. was administered by Scott Myrick RN; for antiplatelet therapy; Wasted 1.5 ml of vial 10:56:01 Place stent Inflation Number: 1 A INTEGRITY RX 2.5 x 14 stent ([id number]) was prepped and advanced across the Mid LAD. The stent was deployed at 13 EMIL for 0:10 (min:sec). 10:56:24 TR BAND Standard ([id number]) opened to sterile field. 10:56:45 Stent catheter was removed intact over wire. 10:56:45 Wire removed. 10:56:46 Guide catheter removed. 10:56:54 Sheath removed intact; hemostasis achieved with Mechanical Compression to the Right Radial artery. 10:56:56 Procedure ended.(Physican Out) 10:57:31 Fluoroscopy time 02.80 minutes. 10:57:34 Fluoroscopy dose: 535 mGy 10:57:34 Flurop Dose total: 535 10:57:38 Contrast amount:Isovue 300 76ml. 10:57:39 Sharps counted by scrub and verified by R.N. 10:57:43 Insertion/operative site no bleeding no hematoma. 10:57:48 TR band inflated with 12cc of air. 10:57:50 Post Procedure Pulses reassessed and unchanged 10:57:53 Post-procedure physical assessment completed. ASA score P 2 - A patient with mild systemic disease as per Chon Aguilar MD. 10:57:55 Post procedure rhythm: unchanged. 10:57:58 Estimated blood loss: 10 ml 10:58:00 Post procedure instruction explained to patient.Patient verbalizes understanding. 10:58:00 Patient needs reinforcement of post procedure teaching. 10:58:12 Procedure type changed to Cath procedure, Diagnostic procedure, LHC, LHC w/Coronaries, PCI procedure, Coronary Stent, Coronary Stent Initial 10:58:15 Procedure and supply charges have been captured, reviewed, submitted and are correct. 10:58:17 Procedure Complication : No complications 11:00:02 Plavix 600 mg P.O. was administered by Scott Myrick RN; for antiplatelet therapy; 11:05:29 Vital chart was stopped 11:05:30 See physician's report for complete and final results. 11:05:36 Report given to Pre/Post Procedure Room. 11:05:47 Patient transfered to Pre/Post Procedure Room with Stretcher. 11:05:49 Procedure ended. 11:05:49 Full Disclosure recording stopped 11:06:40 End room use (Document Last) Intervention Summary Intervention Notes Time ActionType Lesion and Equipment Action# Pressure Duration Attributes Used 10:56:01 Place stent Mid LAD INTEGRITY RX 1 13 00:10 2.5 x 14 stent ([id number]) Device Usage Item Name Manufacture Quantity Catalog Number Hospital Part Current M inimal Lot# / Charge Number Stock Stock Serial# Code Tegaderm 4 x 4 3M 1 [id number] [id number] [id number] 5 (1626W) ACIST Manifold Acist 1 30513 471455 039405 492575 5 (34936) Medical Systems Inc ACIST Hand Acist 1 14621 048097 460075 040434 5 Control (64461) [employer] Inc ACIST Syringe Acist 1 24600 197633 546007 240104 2 0 (32795) Medical Systems Inc Medline Cath Cardinal 1 [id number] 395836 68766 771898 5 Pack Health ([id number]) Bag Decanter Microtek 1 2001S 217859 63061 599096 5 () Medical Inc. DIAGNOSTIC WIRE St Tashi 1 070501 523331 768010 943946 3 0 .035 260cm J wire (258616) MBrace Wrist Advanced 1 140-0250-00 638197 74796 987080 5 Support Vascular (021222928) Dynamics SHEATH 6Fr Merit 1 [id number] 569073 335197 432020 5 Prelude Radial Medical ([id number]) DIAGNOSTIC Terumo 1 405013 524139 567187 521679 5 Leckrone 110cm 5 Fr catheter (897774) GUIDE 6FR XBLAD Cardinal 1 [id number] 606065 141633 040028 1 0 3.5 catheter Health (34039356) INFLATOR Merit Merit 1 [id number] 749983 303746 254059 1 5 [employer] Medical (GK5433) CHOICE PT Extra [place] 1 [id number] 904210 678054 200194 5 Support 182cm Scientific wire ([id number]) INTEGRITY RX Medtronic 1 [id number] 040640 738004 270496 5 [id number] 2.5 x 14 stent ([id number]) TR BAND Terumo 1 [id number] 724150 379071 886797 4 0 Standard ([id number]) Signature Audit Rolette Stage Time Signature Unsigned Intra-Procedure 09/28/2017 Deepak Lara 11:07:34 AM RT(R) Signatures Monitor : Deepak Lara RT Signature : Date : Time : [id number] [place] [address]
--- NOTE | ~2017-09-28 | OP ---
PATIENT NAME: REY MOORE MEDICAL RECORD: [id number] :34 LOCATION:[facility] ADMISSION DATE: SURGEON: CHASE ROWE MD DATE OF OPERATION: 09/28/2017 PROCEDURES: 1. PTCA stent LAD. 2. Left heart catheterization. 3. Selective coronary angiography. 4. Left ventriculogram. INDICATION: Angina and coronary artery disease. DESCRIPTION OF PROCEDURE: After informed consent was obtained and after detailed explanation of risks and benefits as well as alternative therapies, the patient elected to proceed with angiogram and angioplasty. The right radial area was prepped and draped in normal sterile fashion. Right radial artery was cannulated via modified Seldinger technique with placement of 6-Kinyarwanda sheath. All catheters exchanged through the sheath. FINDINGS: The left ventriculogram was performed in standard 30-degree GREEN view reveals preserved cardiac wall motion, ejection fraction 50%. SELECTIVE CORONARY ANGIOGRAPHY: 1. Left main is with no significant angiographic disease. 2. Left anterior descending has previously placed stents. The stents are widely patent. There is 80% stenosis after the previously placed stents. 3. The left circumflex has moderate irregularities, but no flow-limiting stenosis. 4. Right coronary artery has moderate irregularities, but no flow-limiting stenosis. PTCA STENT OF THE LAD: The stent used is an Integrity 2.5 x 14. Result was 0% residual stenosis. OVERALL IMPRESSION: Successful percutaneous transluminal coronary angioplasty stent of the left anterior descending going from 85% initial stenosis to 0% residual stenosis. TRANSINT:[id number] Voice Confirmation ID: [id number] DOCUMENT ID: [id number] CHASE ROWE MD at 1730 CC: [id number] DICTATION DATE: 09/30/17 133 INVESTIGATION DIVISION SERGEANT: 09/30/17 1356 DEP CLI 09/28/17 [id number]
[~2017-09-28 08:03] MED LIST changes: -ZOLOFT25 MG PO
[2017-09-28] MEDS ORDERED: ZOLOFT25 MG PO (08:44)
[2017-09-28 09:03] VITALS: BP 141/67; Ht 180.3 cm; Wt 94.1 kg
[2017-09-28 09:22] LABS: BASOPHILS 0 % (0-2); EOSINOPHILS 0 % (0-7); HEMATOCRIT 44.9 % (42.0-54.0); HEMOGLOBIN 15.6 g/dL (13.5-17.5); IMMATURE GRANULOCYTES 0.2 % (0-5); LYMPHOCYTES 8.8 % (15-50); MCH 32.2 pg (26.0-34.0); MCHC 34.7 g/dL (31.0-37.0); MCV 92.6 fL (80.0-100.0); MEAN PLATELET VOLUME 9.4 fL (7.4-10.4); MONOCYTES 4.7 % (2-11); NEUTROPHILS 86.3 % (40-80); PLATELET COUNT 201 10x3/uL (130-400); RBC 4.85 10x6/uL (4.20-6.10); WBC 9.1 10x3/uL (4.8-10.8)
[2017-09-28 09:59] LABS: CALC OSMOLALITY 274 mosm/kg (275-300); CALCIUM 9.6 mg/dL (8.5-10.1); CARBON DIOXIDE 21.3 mmol/L (21.0-32.0); CHLORIDE - SERUM 101 mmol/L (98-107); CREATININE - SERUM 0.9 mg/dL (0.6-1.3); GLUCOSE 128 mg/dL (74-106); POTASSIUM - SERUM 4.2 mmol/L (3.5-5.1); SODIUM 136 mmol/L (136-145); UREA NITROGEN 15 mg/dL (7-18); eGFR NON AFRICAN AMERICAN 85 mL/min (90-120)
[2017-09-28] MEDS ORDERED: PLAVIX75 MG PO (12:04)
== END 2017-09-28 15:00 ==
LOC: D.CATH 08:03
PROVIDERS: Internal Medicine Interventional Cardiology
DX: I25.119 Atherosclerotic heart disease of native coronary artery with unspecified angina pectoris (principal); Z01.812 Encounter for preprocedural laboratory examination
CPT/HCPCS: 93458; C9600

== ENCOUNTER → 2017-10-10 13:56 | Outpatient (CLI) | payer MEDICARE, OTHER ==
[2017-09-28 09:03] VITALS: BMI 28.9
[~2017-10-10 13:56] MED LIST changes: +ZOLOFT25 MG PO
== END | disposition home or self-care (01) ==
LOC: D.CT 13:56
DX: I65.23 Occlusion and stenosis of bilateral carotid arteries (principal)